=== PATIENT | female | born 1995 | race Two or more races ===

== ENCOUNTER 2019-01-29 16:00 | Emergency (ER) | payer SELFPAY ==
[~2019-01-29] VITALS: Ht 149.9 cm; Wt 71.0 kg
--- NOTE | 2019-01-29 16:40 | NUR ---
TRAIGE NOTE: VAGINAL BLEEDING AND CRAMPING X 2 DAYS. BLEEDING DESCRIBED "SUPER HEAVY" WITH LARGE CLOTS. 7 PADS TODAY. LMP STARTED 01/25/19. Pt ambulated to room with this RN. Pt changing into gown. Pt states unable to provide urine sample at this time.
--- NOTE | 2019-01-29 16:56 | NUR ---
Dr. Packer at bedside to evaluate pt.
--- NOTE | 2019-01-29 17:23 | NUR ---
Lab at bedside.
[2019-01-29 17:34] LABS: BASOPHILS # (AUTO) 0.03 x10^3/uL (0-0.1); BASOPHILS % (AUTO) 0 % (0-1); EOSINOPHILS # (AUTO) 0.05 x10^3/uL (0-0.4); EOSINOPHILS % (AUTO) 1 % (1-7); LYMPHOCYTES # (AUTO) 1.72 x10^3/uL (1-3.4); LYMPHOCYTES % (AUTO) 18 % (22-44); MD NO; MEAN CORPUSCULAR HGB CONC 34.4 g/dL (32.4-35.8); MEAN CORPUSCULAR VOLUME 90.2 fL (80-100); MEAN PLATELET VOLUME 8.2 fL (7.4-10.4); MONOCYTES # (AUTO) 0.38 x10^3/uL (0.2-0.8); MONOCYTES % (AUTO) 4 % (2-9); NEUTROPHILS # (AUTO) 7.33 x10^3/uL (1.8-6.8); NEUTROPHILS % (AUTO) 77 % (42-75); PLATELET COUNT 330 x10^3/uL (130-400); RED BLOOD COUNT 4.37 x10^6/uL (3.82-5.3); RED CELL DISTRIBUTION WIDTH 13.3 % (9.6-15.2)
[2019-01-29 17:43] LABS: ALBUMIN 3.9 g/dL (3.4-5.0); ANION GAP 7 mmol/L (5-15); CALCIUM 8.6 mg/dL (8.5-10.1); CHLORIDE 109 mmol/L (98-107); CREATININE 0.92 mg/dL (0.55-1.02)
[2019-01-29 18:22] VITALS: BP 111/67
--- NOTE | 2019-01-29 18:23 | NUR ---
Pt resting on MIESHA ro. Pt made aware that all lab tests are back and chart is up for recheck.
--- NOTE | 2019-01-29 19:00 | NUR ---
Patient/Caregiver given discharge instructions and they have confirmed that they understand the instructions. Patient ambulatory with steady gait.
== END 2019-01-29 19:01 | disposition home or self-care (01) ==
LOC: ED 17:43
DX: N92.0 Excessive and frequent menstruation with regular cycle (principal)
CPT/HCPCS: 36415; 80048; 82040; 84703; 85025; 99283

== ENCOUNTER 2019-05-09 17:51 | Emergency (ER) | payer SELFPAY ==
[~2019-05-09] VITALS: Ht 149.9 cm; Wt 74.1 kg
[2019-05-09 18:23] VITALS: BP 158/83
== END 2019-05-09 18:59 | disposition home or self-care (01) ==
LOC: ED 18:45
DX: L02.411 Cutaneous abscess of right axilla (principal)
CPT/HCPCS: 10060; 99283